=== PATIENT | female | born 1990 | race Caucasian/White ===

== ENCOUNTER 2024-10-25 21:11 | Emergency (ER) | payer OTHER, SELFPAY ==
--- NOTE | 2024-10-25 | ECG_ITS ---
Test Reason : CP Blood Pressure : */* mmHG Vent. Rate : 103 BPM Atrial Rate : 103 BPM P-R Int : 126 ms QRS Dur : 74 ms QT Int : 332 ms P-R-T Axes : 37 30 50 degrees QTcB Int : 434 ms Sinus tachycardia Otherwise normal ECG No previous ECGs available Referred By: Generic ED Physician Electronically Signed By: Jonathan Lacey
--- NOTE | ~2024-10-25 | US_ITS ---
CLINICAL HISTORY: pain, adnexal cyst on CT US pelvis transabdominal and transvaginal with Doppler Comparison: CT/SR - CT ABDOMEN PELVIS W IV CON - 10/26/24 00:52 EDT Findings: Transabdominal scanning performed for overall anatomy. Transvaginal scanning performed for additional detail. Anteverted uterus is 10 cm length. Small left fundal fibroid measuring 2 x 2 x 1.9 cm. No endometrial lesion, 4 mm thickness. IUD in place along the uterine fundus. Fluid noted along the endometrial cavity with echogenic linear focus along the endocervical cavity, may reflect artifact or air, nonspecific. Of note, on CT there is scattered air near the endocervical canal and endovaginal canal. Right ovary not visualized. Left ovary only visualized on transabdominal exam measuring 4 x 1.9 x 2.6 cm. Complex left ovarian cyst measuring 2.3 x 2.1 x 2 cm may reflect a hemorrhagic or corpus luteum cyst. Normal color Doppler with arterial/venous spectral tracing of in the left ovary. No free fluid. IMPRESSION: No evidence of left ovarian torsion. Nonvisualization of the right ovary. IUD in place. Uterine fibroid. This document has been electronically signed by: Javier Navarrete MD on 10/26/2024 04:24:22
--- NOTE | ~2024-10-25 | XR_ITS ---
CLINICAL HISTORY: cp 2 view chest x-ray Comparison: None Findings: No consolidation or effusion. Normal size heart. No acute fracture. IMPRESSION: 1. No acute findings. This document has been electronically signed by: Tristan Ortiz MD on 10/25/2024 22:52:38
--- NOTE | ~2024-10-25 | CT_ITS ---
CLINICAL HISTORY: pain, divertic? CT abdomen and pelvis with contrast Comparison: None Findings: No consolidation or effusion. Hepatomegaly with steatosis. Minimal left-sided perinephric stranding, nonspecific. No hydronephrosis. Terminal ileum mural thickening with mucosal hyperemia. No bowel obstruction. Fat containing umbilical hernia. Mildly prominent inguinal and retroperitoneal nodes, nonspecific. IUD noted in the uterine fundus. Suspect fundal fibroid. Heterogeneous left adnexal cyst. This may be further evaluated with ultrasound. Scattered colonic diverticulosis without diverticulitis or colitis. Normal appendix. Trace free pelvic fluid. No acute fracture. IMPRESSION: 1. Suspect mild terminal ileitis. 2. Possible ruptured left adnexal cysts with trace free pelvic fluid. This document has been electronically signed by: Javier Navarrete MD on 10/26/2024 01:57:30
[2024-10-25 21:24] VITALS: BP 152/85; PULSE 107; RESP 17; TEMP 36.8; O2SAT 98; BMI 34.8
[2024-10-25 21:39] LABS: MANUAL DIFF FLAG NO
[2024-10-25 21:41] LABS: Basophils Absolute Auto 0.1 X10*3/uL (0.0-0.2); Basophils Percent Auto 0.8 % (0-2); Eosinophils Absolute Auto 0.1 X10*3/uL (0.0-0.4); Eosinophils Percent Auto 0.7 % (0-4); Hematocrit 37.4 % (37.0-47.0); Hemoglobin 13.1 g/dl (12.0-16.0); Imm Gran Abs Auto 0.03 X10*3/uL (0.00-0.03); Imm Gran Pct Auto 0.2 % (0.0-0.4); Lymphocytes Absolute Auto 3.5 X10*3/uL (1.2-4.9); Lymphocytes Percent Auto 26.4 % (20-40); Mean Corpuscular Hemoglobin 30.5 pg (27.0-33.0); Mean Platelet Volume 9.8 fL (9.4-12.3); Monocytes Absolute Auto 0.7 X10*3/uL (0.1-1.2); Monocytes Percent Auto 4.9 % (2-11); Neutrophils Absolute Auto 8.9 x10*3/uL (2.0-8.3); Platelet Count 288 X10*3/uL (160-400); Red Cell Distribution Width 12.6 % (11.0-16.0); White Blood Count 13.3 X10*3/uL (4.8-10.8)
[2024-10-25 21:54] LABS: Alanine Aminotransferase 48 U/L (0-31); Albumin Level 4.3 g/dL (3.5-5.0); Alkaline Phosphatase 73 U/L (39-117); Anion Gap 13 (12-20); Aspartate Amino Transferase 31 U/L (5-31); Bilirubin Total 0.4 mg/dL (0.0-1.0); Blood Urea Nitrogen 12 mg/dL (9-16); Calcium 9.6 mg/dL (8.4-10.2); Carbon Dioxide 22 mmol/L (22-29); Chloride 107 mmol/L (96-108); Creatinine Clr Calc Pharmacy 108.2; Estimated Glomerular Filt Rate > 60; Glucose Random 108 mg/dL (60-115); Lipase 29 U/L (8-78); Potassium 4.2 mmol/L (3.3-5.1); Sodium 138 mmol/L (135-145); Total Protein 7.4 g/dL (6.5-8.0)
[2024-10-25 22:02] LABS: Troponin-I High Sensitivity < 2.7 ng/L (<3.5-17.0)
[2024-10-25 22:24] VITALS: BP 105/64; PULSE 84; RESP 16; O2SAT 96
[2024-10-26 00:02] VITALS: BP 99/55; PULSE 74; RESP 16; TEMP 36.6; O2SAT 98
--- NOTE | 2024-10-26 00:03 | MHC.EDTECH ---
This pct assumed care of Patient at 2300 ,vitals taken,Urine sample collected and sent to lab .Call wilder within Pt reach .
[2024-10-26 00:09] LABS: Appearance Urine Cloudy; Color Urine Yellow; Glucose Urine UA Negative (Negative); Leukocyte Esterase Urine Negative (Negative); Nitrite Urine Negative (Negative); Specific Gravity - Urine >= 1.030 (1.005-1.025); Urine Blood Negative (Negative); Urine Ketones Trace mg/dL (Negative); Urine Protein Trace mg/dL (Neg-Trace)
[2024-10-26 00:10] LABS: UPreg QC Valid YES; Urine Pregnancy NEGATIVE (NEGATIVE)
[2024-10-26 00:19] LABS: Bacteria Urine 4+ (None Seen); Hyaline Casts Urine 0-2 /LPF (0-2); RBC Urine 0-2 /HPF (0-2); WBC Urine 0-5 /HPF (0-5)
[2024-10-26 00:43] LABS: HCG Quantitative < 2 mIU/mL
[2024-10-26] MEDS: 0.9 % Sodium Chloride 1,000 ML 999 ML IV (00:44)
[2024-10-26] MEDS: Ketorolac Tromethamine 15 MG/ML VIAL IVPUSH (00:44)
[2024-10-26] MEDS: iohexoL 350 MG/ML 100 ML INFUS..BTL 85 ML IV (01:01)
--- NOTE | 2024-10-26 02:14 | ED_ITS ---
HPI - General Adult General Chief complaint: Abdominal Pain Stated complaint: abd pain, cp, left arm numbness Time Seen by Provider: 10/25/24 23:28 Source: patient Limitations: no limitations History of Present Illness ED Provider: Mari Contreras PA-C HPI narrative: 34-year-old female with a history of morbid obesity presents with acute onset lower abdominal discomfort. Patient states she developed stabbing left lower quadrant pain earlier today. The pain is from mid to left abdomen. Denies nausea vomiting diarrhea. Denies known ovarian cysts. Denies dysuria, hematuria or history of kidney stones. Denies new vaginal discharge or risk for STD. Patient also states she developed left anterior chest discomfort that radiated to her arm. The chest pain was transient. Related Data Previous Rx's ?Medication ?Instructions ?Recorded diazepam 5 mg tablet (Valium) 5 mg PO TID PRN pain, spasm #14 10/26/24 tabs Allergies Allergy/AdvReac Type Severity Reaction Status Date / Time No Known Allergies Allergy Verified 10/25/24 21:27 Review of Systems 2 Review of Systems: Yes all other systems are reviewed and are negative Constitutional: Constitutional: Denies fatigue and Denies fever(s) Cardiovascular: Cardiovascular: Reports chest pain and Denies dyspnea Respiratory: Respiratory: Denies cough and Denies dyspnea Gastrointestinal: Gastrointestinal: Reports abdominal pain, Denies constipation, Denies diarrhea, Denies nausea and Denies vomiting Genitourinary: Genitourinary: Denies dysuria, Denies pelvic pain and Denies vaginal discharge Endocrine: Endocrine: Denies fatigue PMFSH Past Medical History Attestation statement: The following information was validated with the patient. Physical Exam ED Vital Signs: Vital Signs - 24 hr 10/25/24 21:24 10/25/24 22:24 10/26/24 00:02 Temperature 98.2 F 97.9 F Pulse Rate 107 H 84 74 Respiratory Rate 17 16 16 Blood Pressure 152/85 H 105/64 99/55 L Pulse Oximetry 98 96 98 Oxygen Delivery Method Room Air Room Air 10/26/24 02:23 10/26/24 05:58 Temperature 98.5 F 98.5 F Pulse Rate 70 78 Respiratory Rate 16 16 Blood Pressure 97/56 L 100/55 L Pulse Oximetry 97 98 Oxygen Delivery Method Room Air Room Air BMI result Body Mass Index 34.8 Const Other: Alert Orientation/consciousness: patient oriented x3 Resp Effort & Inspection: normal respiratory effort Cardio Other: Normal peripheral perfusion GI Other: Diminished soft, obese, moderate tenderness a suprapubic and left lower quadrant with mild involuntary guarding Skin Other: Warm dry no rash Neuro General: patient oriented x3, gait normal, no focal motor deficits and CN's II- XI intact bilaterally Psych Other: Cooperative Course Course Course Narrative: Signed out to night team pending transvaginal ultrasound results and final disposition 10/26/2024 at 07:44 hours, Dr. Manish Dash's note: I assumed care of this patient from my colleague, physician assistant professor nurse education Anni Contreras at 04:00 hours. The patient presents emergency department for evaluation of lower abdominal pain which started gradually yesterday around 18:00 hours and became severe over time. She describes the pain is a constant cramping sensation. She was treated with Toradol 15 mg IV and diazepam 2.5 mg IV with significant improvement of her pain. She states that her pain is currently 2/10. On examination the patient does have mild right lower quadrant tenderness and mild to moderate left lower quadrant tenderness. CT scan of the abdomen pelvis did reveal suspected mild terminal ileitis and possible ruptured left adnexal cyst with trace free fluid. Duplex ultrasound of the patient's pelvis revealed a left complex ovarian cyst measuring 2 x 3 x 2 x 1 x 2.0 cm which may reflect a hemorrhagic corpus luteal cyst. I did discuss these findings with the patient. At this time I do not think that the patient has terminal ileitis since she has no history of chronic abdominal pain or diarrhea. I did tell her it is important to follow up with your doctor to discuss this finding to see if she needs any further evaluation. The patient's left complex hemorrhagic ovarian cyst most likely explains her pain and I suspect that she acutely bleed into the cyst and this caused her pain. The patient was advised to take Tylenol and ibuprofen for pain. She does not want a narcotic medication. The patient did get relief of her had pain with diazepam therefore I did prescribe diazepam 5 mg every 6 hours as needed for pain and spasm. 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 She was given printed and verbal instructions and discharged home. Medications Administered Discontinued Medications Generic Name Dose Route Start Last Admin Trade Name Freq PRN Reason Stop Dose Admin Diazepam 2.5 mg 10/26/24 02:35 10/26/24 03:22 Diazepam 10 Mg/2 Ml Cartridge IVPUSH 10/26/24 02:36 2.5 mg STAT STA Administration Sodium Chloride 1,000 mls @ 999 mls/hr 10/26/24 00:30 10/26/24 02:02 Ns IV 10/26/24 01:30 Infused .Q1H1M MAIKEL Infusion Iohexol 85 ml 10/26/24 01:01 10/26/24 01:01 Iohexol 350 Mg/Ml 100 Ml Infus..Btl IV 10/26/24 01:02 85 ml ONCE ONE Administration Ketorolac Tromethamine 15 mg 10/26/24 00:23 10/26/24 00:44 Ketorolac Tromethamine 15 Mg/Ml Vial IVPUSH 10/26/24 00:24 15 mg ONCE ONE Administration Medical Decision Making Medical Decision Making MDM Narrative: 34-year-old female with a history of morbid obesity presents with acute onset lower abdominal discomfort. Patient states she developed stabbing left lower quadrant pain earlier today. The pain is from mid to left abdomen. Denies nausea vomiting diarrhea. Denies known ovarian cysts. Denies dysuria, hematuria or history of kidney stones. Denies new vaginal discharge or risk for STD. Patient also states she developed left anterior chest discomfort that radiated to her arm. The chest pain was transient. Problem: Obesity History: Per patient I have considered the following differential diagnoses: Diverticulitis, UTI, torsion, TOA, PID, ACS Plan:Plan: Given distribution of discomfort, I am considering diverticulitis. We will be obtaining a CT scan, giving IV fluid Toradol for her discomfort. Screening labs were already obtained from triage. She has a slight leukocytosis. Also considering torsion given lower abdominal pain, although she has no known history of ovarian cysts. If there is any concern on CT scan, she will have a transvaginal ultrasound. She has no vaginal discharge or risk for STD, gynecological pathology in the way of a TOA or PID are least likely. Patient also complained of left-sided chest pain that radiated to her arm earlier. The patient has no risk factors for coronary artery disease, ACS was considered, troponin EKG and chest x-ray were obtained, to note her heart score is 0. Labs: Slight leukocytosis, not anemic, not , no electrolyte abnormality, troponin negative, urine not infected EKG: Sinus tachycardia, rate of 103, no ischemic changes no ectopy QTC 434 Chest x-ray:IMPRESSION: 1. No acute findings. CT abdomen and pelvis:Hepatomegaly with steatosis. Minimal left-sided perinephric stranding, nonspecific. No hydronephrosis. Terminal ileum mural thickening with mucosal hyperemia. No bowel obstruction. Fat containing umbilical hernia. Mildly prominent inguinal and retroperitoneal nodes, nonspecific. IUD noted in the uterine fundus. Suspect fundal fibroid. Heterogeneous left adnexal cyst. This may be further evaluated with ultrasound. Scattered colonic diverticulosis without diverticulitis or colitis. Normal appendix. Trace free pelvic fluid. No acute fracture. IMPRESSION: 1. Suspect mild terminal ileitis. 2. Possible ruptured left adnexal cysts with trace free pelvic fluid. Lab Data 10/25/24 21:35 10/25/24 21:35 Labs: Lab Results 10/25/24 10/25/24 Range/Units 21:35 23:59 WBC 13.3 H (4.8-10.8) X10*3/uL RBC 4.30 (4.20-5.50) X10*6/uL Hgb 13.1 (12.0-16.0) g/dl Hct 37.4 (37.0-47.0) % MCV 87.0 (80.0-98.0) fL MCH 30.5 (27.0-33.0) pg MCHC 35.0 (31.0-35.0) g/dl RDW 12.6 (11.0-16.0) % Plt Count 288 (160-400) X10*3/uL MPV 9.8 (9.4-12.3) fL Immature Gran % (Auto) 0.2 (0.0-0.4) % Neut % (Auto) 67.0 (45-73) % Lymph % (Auto) 26.4 (20-40) % [place] % (Auto) 4.9 (2-11) % Eos % (Auto) 0.7 (0-4) % Baso % (Auto) 0.8 (0-2) % Lymph # (Auto) 3.5 (1.2-4.9) X10*3/uL [place] # (Auto) 0.7 (0.1-1.2) X10*3/uL Eos # (Auto) 0.1 (0.0-0.4) X10*3/uL Baso # (Auto) 0.1 (0.0-0.2) X10*3/uL Abs Immat Gran (auto) 0.03 (0.00-0.03) X10*3/uL Absolute Neuts (auto) 8.9 H (2.0-8.3) x10*3/uL Absolute Nucleated RBC 0.000 (0.0-0.012) X10*3/uL Nucleated RBC % (auto) 0.0 (0.0-0.2) /100WBC Sodium 138 (135-145) mmol/L Potassium 4.2 (3.3-5.1) mmol/L Chloride 107 (96-108) mmol/L Carbon Dioxide 22 (22-29) mmol/L Anion Gap 13 (12-20) BUN 12 (9-16) mg/dL Creatinine 0.79 (0.5-1.4) mg/dL Estim Creat Clear Calc 108.2 Estimated GFR > 60 Random Glucose 108 (60-115) mg/dL Calcium 9.6 (8.4-10.2) mg/dL Total Bilirubin 0.4 (0.0-1.0) mg/dL AST 31 (5-31) U/L ALT 48 H (0-31) U/L Alkaline Phosphatase 73 (39-117) U/L Troponin I High Sens < 2.7 (<3.5-17.0) ng/L Total Protein 7.4 (6.5-8.0) g/dL Albumin 4.3 (3.5-5.0) g/dL Lipase 29 (8-78) U/L Beta HCG, Quant < 2 mIU/mL Urine Color Yellow Urine Appearance Cloudy Urine pH 6.0 (5.0-9.0) Ur Specific [place] >= 1.030 H (1.005-1.025) Urine Protein Trace (Neg-Trace) mg/dL Urine Glucose (UA) Negative (Negative) mg/dL Urine Ketones Trace (Negative) mg/dL Urine Blood Negative (Negative) Urine Nitrite Negative (Negative) Ur Leukocyte Esterase Negative (Negative) Urine RBC 0-2 (0-2) /HPF Urine WBC 0-5 (0-5) /HPF Ur Squamous Epith Cells 11-20 (0-2) /HPF Urine Bacteria 4+ (None Seen) Hyaline Casts 0-2 (0-2) /LPF Urine Test NEGATIVE (NEGATIVE) Radiology Impression Discussion of test interpretation with radiology: I have reviewed the radiologist's reading. Radiologist Impression: MD Rosalba on 10/26/2024 04:24:22 Discharge Plan Discharge Clinical Impression: Abdominal pain, Hemorrhagic cyst of left ovary Patient Disposition: Home, Self-Care Instructions: Ovarian Cyst (ED) Additional Instructions: Your blood work revealed an elevated white blood count of 13,300 and otherwise was unremarkable. Your serum test was negative. Your CT scan of your abdomen pelvis did reveal thickening of the terminal ileum but I do not think that you have terminal ileitis as the cause of your pain. I do want you to follow-up with your primary care doctor to discuss this finding to see if you need any further testing. You also had a heterogeneous left ovarian cyst noted on the CT scan. The duplex ultrasound of your ovaries did not reveal any torsion/twisting around the ovary which is reassuring. The radiologist did see the left-sided ovarian cyst and felt that it may be consistent with a hemorrhagic cyst (bleeding into this cyst). I suspect that you bled into the cyst and this is the cause of your pain. Take ibuprofen 200 mg pills, 2 pills every 6 hours as needed for pain. Take Tylenol (acetaminophen) 2 pills every 6 hours as needed for pain. For pain not relieved by ibuprofen or Tylenol take Valium (diazepam) 5 mg pills, 1 pill every 6 hours as needed for pain or spasm of your muscles. This medication will make you sleepy, do not drive or work while taking this medication. Valium is a benzodiazepine medication and can be addicting. If you are concerned about addiction you can ask the pharmacist for less pills or do not get this prescription filled. Follow-up with your drain tile machine operator at [facility] in 7-10 days for re- evaluation Follow-up with the primary care doctor in 1-2 weeks for evaluation of your abdominal pain in a discuss the possibility of terminal ileitis and to see if you need any further testing. Please return to the emergency department if your symptoms get worse or if you develop any symptoms that are concerning to you. Prescriptions: New diazepam [Valium] 5 mg tablet 5 mg PO TID PRN (Reason: pain, spasm ) Qty: 14 0RF Interventions: ED Discharge Assessment Last Done: 10/26/24 08:01 Discharge Date/Time: 10/26/24 08:10 Print Language: Ecuadorean
[2024-10-26 02:23] VITALS: BP 97/56; PULSE 70; RESP 16; TEMP 36.9; O2SAT 97
[2024-10-26] MEDS: diazePAM 10 MG/2 ML CARTRIDGE 2.5 MG IVPUSH (03:22)
[2024-10-26 05:58] VITALS: BP 100/55; PULSE 78; RESP 16; TEMP 36.9; O2SAT 98
[2024-10-26 08:01] VITALS: BP 100/55; PULSE 78; RESP 16; TEMP 36.9; O2SAT 98
== END 2024-10-26 08:10 | disposition home or self-care (01) ==
PROVIDERS: Emergency Medicine; Physician Assistant Medical; Emergency Provider Emergency Medicine Emergency Medical Services
DX: N83.202 Unspecified ovarian cyst, left side (principal); R10.32 Left lower quadrant pain
CPT/HCPCS: 36415; 71046; 74177; 76830; 76856; 80053; 81001; 81025; 83690; 84484; 84702; 85025; 93005; 93975; 96361; 96374; 96375; 99285; J1885; J3360; Q9967

== ENCOUNTER → 2024-10-25 21:21 | Outpatient (BNV) | payer OTHER, SELFPAY | PROVIDERS: Emergency Provider Emergency Medicine Emergency Medical Services; Visit Provider Internal Medicine Cardiovascular Disease | DX: R07.9 Chest pain, unspecified (principal); R00.0 Tachycardia, unspecified | CPT/HCPCS: 93010 ==

== ENCOUNTER → 2024-10-25 22:20 | Outpatient (BNV) | payer OTHER, SELFPAY | PROVIDERS: Visit Provider Student in an Organized Health Care Education/Training Program | DX: R07.9 Chest pain, unspecified (principal) | CPT/HCPCS: 71046 ==

== ENCOUNTER → 2024-10-26 00:23 | Outpatient (BNV) | payer OTHER, SELFPAY | PROVIDERS: Emergency Provider Emergency Medicine; Visit Provider Radiology Diagnostic Radiology | DX: R10.9 Unspecified abdominal pain (principal); D35.02 Benign neoplasm of left adrenal gland; D25.9 Leiomyoma of uterus, unspecified | CPT/HCPCS: 74177; 93975 ==